=== PATIENT | female | born 1950 | race Caucasian/White ===

== ENCOUNTER 2019-12-18 10:59 | Emergency (ER) | payer MEDICARE, BC ==
[~2019-12-18] VITALS: Ht 157.5 cm; Wt 89.8 kg
[2019-12-18] MEDS ORDERED: NEURONTIN 300M300 M2 PO (11:15)
[2019-12-18] MEDS ORDERED: NORVASC 2.5 MG2.5 M1 PO (11:15)
[2019-12-18] MEDS ORDERED: IRON 100 PLUS1 EACH PO (11:15)
[2019-12-18] MEDS ORDERED: DICYCLOMINE HCL20 MG PO (11:16)
[2019-12-18] MEDS ORDERED: CARVEDILOL25 MG PO (11:16)
[2019-12-18] MEDS ORDERED: DULOXETINE HCL30 MG PO (11:16)
[2019-12-18] MEDS ORDERED: NORCO 5-325 TA1 EAC2 PO (14:05)
[2019-12-18 14:20] VITALS: BP 130/73
== END 2019-12-18 14:22 | disposition home or self-care (01) ==
LOC: M.ERS 10:59
DX: S22.42XA Multiple fractures of ribs, left side, initial encounter for closed fracture (principal); S16.1XXA Strain of muscle, fascia and tendon at neck level, initial encounter; S80.01XA Contusion of right knee, initial encounter; S09.8XXA Other specified injuries of head, initial encounter; Z88.6 Allergy status to analgesic agent; W18.39XA Other fall on same level, initial encounter; Y93.89 Activity, other specified; Y92.89 Other specified places as the place of occurrence of the external cause; Y99.8 Other external cause status